=== PATIENT | male | born 2000 | race Two or more races ===

== ENCOUNTER 2025-10-03 07:40 | Day surgery (SDC) | payer BC, SELFPAY ==
[2025-10-03] VITALS (8 sets, daily range): BP systolic 129–142; BP diastolic 78–101; PULSE 83–105; RESP 12–19; TEMP 36.9–37.1; O2SAT 95–99; BMI 30.8
[2025-10-03] MEDS: fentaNYL CIT INJ 50 mCg/ML AMP 2ML (ASD USE ONLY) IVP (08:33)
[2025-10-03] MEDS: SODIUM CHLORIDE 0.9% 500 ML 500 ML 20 ML IV (08:33)
[2025-10-03] MEDS: MIDAZOLAM INJ 1 MG/ML VIAL 2 ML (ASD USE ONLY) 2 MG IVP (08:39)
== END 2025-10-03 09:20 | disposition home or self-care (01) ==
PROVIDERS: PCP Nurse Practitioner Family; Referring Provider Surgery; Visit Provider Surgery
PROC: 0DBE8ZX Excision of Large Intestine, Via Natural or Artificial Opening Endoscopic, Diagnostic (ICD-10-PCS; CPT 45380; principal; 2025-10-03 08:30)
DX: K64.0 First degree hemorrhoids (principal); K62.5 Hemorrhage of anus and rectum
CPT/HCPCS: 45378; A4217; A4649; J1200; J2250; J3010; J7999